=== PATIENT | male | born 1985 | race Caucasian/White ===

== ENCOUNTER 2016-08-31 12:12 | Emergency (ER) | payer OTHER ==
[~2016-08-31] VITALS: Ht 180.3 cm; Wt 108.9 kg
[~2016-08-31 12:12] MED LIST: ACHD5005 PO; NAPR-243 PO
[2016-08-31] MEDS ORDERED: NS IV 1000 ML 1,000 ML IV SCH ×2 (12:45→14:15)
--- NOTE | 2016-08-31 12:48 | ED Psychosocial ---
General Chief Complaint: Substance Abuse Stated Complaint: DRUG USE Nursing Triage Note: AMBULATED TO ROOM 01 ET TEARFUL. COMPLAINS OF HX OF DRUG ABUSE ET LAST TIME HE USED IV METH WAS ON MONDAY. WANTING TO GET OFF OF METH. ALSO USES PROZAC AND HYDROCODONE BUT STATES METH IS THE MAIN PROBLEM. Source: patient Exam Limitations: no limitations History of Present Illness Time seen by provider: 12:45 Initial Comments Brought to ER by his [id number] with reports of drug use. Patient states that he's had a recent relapse last into using IV methamphetamine. His last use was on the night of the seventh he states. This morning he also took 2 or 3 Prozac and 2 or 3 hydrocodone. He states that he is indifferent about dying but has no particular thoughts of suicide or plans to harm himself. He took the pills this morning in an attempt to get high but not to harm himself. He denies any alcohol use. He also uses marijuana regularly. He states he went to inpatient drug treatment in [facility] last year and that was the only time that he's ever been to rehabilitation.. Timing/Duration: just prior to arrival Severity: moderate Allergies and Home Medications Allergies Coded Allergies: No Known Drug Allergies (Unverified , 08/20/11) Constitutional: see HPI EENTM: see HPI Respiratory: no symptoms reported Cardiovascular: no symptoms reported Genitourinary: no symptoms reported Musculoskeletal: no symptoms reported Skin: no symptoms reported Psychiatric/Neurological: No Symptoms Reported Past [id number]-[id number] Hx Patient Social History Recent Foreign Travel: No Contact w/Someone Who Travel: No Recent Infectious Disease Expo: No Physical Exam Vital Signs Vital Sign - Last 12Hours 08/31/16 12:30 Temp 98.0 Pulse 86 Resp 18 B/P (MAP) 138/93 Pulse Ox 94 Capillary Refill : Less Than 3 Seconds General Appearance: WD/WN, no apparent distress, other (can barely keep his eyes open, speech is slurred but he does answer questions appropriately..) HEENT: PERRL/EOMI, normal ENT inspection Neck: non-tender, full range of motion Respiratory: normal breath sounds, no respiratory distress, no accessory muscle use Cardiovascular: regular rate, rhythm, no murmur Gastrointestinal: normal bowel sounds, non tender, soft Extremities: normal range of motion, non-tender Neurologic/Psychiatric: alert, normal mood/affect, oriented x 3 Behavior/Eye Contact: cooperative Thoughts/Hallucinations: normal thought pattern, no apparent hallucination Skin: normal color, warm/dry Progress/Results/Core Measures Results/Orders Lab Results Laboratory Tests Test 08/31/16 12:40 Range/Units White Blood Count 13.7 H 4.3-11.0 10^3/uL Red Blood Count 4.77 4.35-5.85 10^6/uL Hemoglobin 14.4 13.3-17.7 G/DL Hematocrit 42 40-54 % Mean Corpuscular Volume 88 80-99 FL Mean Corpuscular Hemoglobin 30 25-34 PG Mean Corpuscular Hemoglobin Concent 34 32-36 G/DL Red Cell Distribution Width 13.1 10.0-14.5 % Platelet Count 327 130-400 10^3/uL Mean Platelet Volume 9.6 7.4-10.4 FL Neutrophils (%) (Auto) 67 42-75 % Lymphocytes (%) (Auto) 19 12-44 % Monocytes (%) (Auto) 7 0-12 % Eosinophils (%) (Auto) 7 0-10 % Basophils (%) (Auto) 0 0-10 % Neutrophils # (Auto) 9.1 H 1.8-7.8 X 10^3 Lymphocytes # (Auto) 2.5 1.0-4.0 X 10^3 Monocytes # (Auto) 1.0 0.0-1.0 X 10^3 Eosinophils # (Auto) 1.0 H 0.0-0.3 10^3/uL Basophils # (Auto) 0.0 0.0-0.1 10^3/uL Sodium Level 139 135-145 MMOL/L Potassium Level 3.8 3.6-5.0 MMOL/L Chloride Level 102 98-107 MMOL/L Carbon Dioxide Level 29 21-32 MMOL/L Anion Gap 8 5-14 MMOL/L Blood Urea Nitrogen 16 7-18 MG/DL Creatinine 0.82 0.60-1.30 MG/DL Estimat Glomerular Filtration Rate > 60 BUN/Creatinine Ratio 20 Glucose Level 118 H 70-105 MG/DL Calcium Level 9.3 8.5-10.1 MG/DL Total Bilirubin 0.4 0.1-1.0 MG/DL Aspartate Amino Transf (AST/SGOT) 20 5-34 U/L Alanine Aminotransferase (ALT/SGPT) 67 H 0-55 U/L Alkaline Phosphatase 95 40-136 U/L Total Protein 6.9 6.4-8.2 G/DL Albumin 3.9 3.2-4.5 G/DL Salicylates Level < 5.0 L 5.0-20.0 MG/DL Acetaminophen Level < 10 L 10-30 UG/ML Serum Alcohol < 10 <10 MG/DL My Orders Orders - JAIME LONDON APRN Cbc With Automated Diff (08/31/16 12:43) Comprehensive Metabolic Panel (08/31/16 12:43) Alcohol (08/31/16 12:43) Acetaminophen (08/31/16 12:43) Salicylate (08/31/16 12:43) Ekg Tracing (08/31/16:43) Ua Culture If Indicated (08/31/16 12:43) Drug Screen Stat (Urine) (08/31/16 12:43) Saline Lock/Iv-Start (08/31/16 12:43) Ns Iv 1000 Ml (Sodium Chloride 0.9%) (08/31/16 12:45) Ondansetron Injection (Zofran Injectio (08/31/16 13:15) Ns Iv 1000 Ml (Sodium Chloride 0.9%) (08/31/16 14:15) Medications Given in ED Current Medications Medications Dose Ordered Sig/Percy Route Start Time Stop Time Status Last Admin Dose Admin Ondansetron HCl 8 mg ONCE ONCE IVP 08/31/16 13:15 08/31/16 13:16 DC 08/31/16 13:08 8 MG Vital Signs/I&O Vital Sign - Last 12Hours 08/31/16 12:30 Temp 98.0 Pulse 86 Resp 18 B/P (MAP) 138/93 Pulse Ox 94 Blood Pressure Mean: 108 Departure Communication Progress Notes [id number]-patient sleeping but arousable to verbal stimuli. States that he would like to go somewhere for inpatient drug detox and he would like to do that here. I advised him that that cannot be done here for methamphetamine use. I would be happy to talk to an inpatient treatment facility such as [facility] and [facility] he states that he has no way of getting there [id number]- patient now states that he could get transportation to an inpatient treatment facility even a few hours away tomorrow morning but not today. As such I called the [facility] in [place], [place] and they are speaking with him on the phone currently. 1600-patient has discussed his situation with [facility]. They do have a bed available but would need to $100 up front for him to be admitted. Patient has to go speak with his consumer safety officer tomorrow morning at [place], [place] at 8 a.m. and his consumer safety officer will help him with the money to get admitted to [facility] he states. Impression Impression: Primary Impression: Drug abuse Disposition: HOME, SELF-CARE Condition: Stable Departure-Patient Inst. Decision time for Depature: 14:54 Referrals: [facility] (PCP/Family) Primary Care Physician Patient Instructions: ALCOHOL AND SUBSTANCE ABUSE Add. Discharge Instructions: All discharge instructions reviewed with patient and/or family. Voiced understanding. JAIME LONDON APRN August 31, 2016 12:48
[2016-08-31 12:53] LABS: BASOPHILS % (AUTO) 0 % (0-10); EOSINOPHILS % (AUTO) 7 % (0-10); LYMPHOCYTES # (AUTO) 2.5 X 10^3 (1.0-4.0); LYMPHOCYTES % (AUTO) 19 % (12-44); MEAN CORPUSCULAR HEMOGLOBIN 30 PG (25-34); MEAN CORPUSCULAR HGB CONC 34 G/DL (32-36); MEAN CORPUSCULAR VOLUME 88 FL (80-99); MEAN PLATELET VOLUME 9.6 FL (7.4-10.4); MONOCYTES % (AUTO) 7 % (0-12); NEUTROPHILS # (AUTO) 9.1 X 10^3 (1.8-7.8); NEUTROPHILS % (AUTO) 67 % (42-75); PLATELET COUNT 327 10^3/uL (130-400); RED BLOOD COUNT 4.77 10^6/uL (4.35-5.85); RED CELL DISTRIBUTION WIDTH 13.1 % (10.0-14.5); WHITE BLOOD COUNT 13.7 10^3/uL (4.3-11.0)
[2016-08-31 13:14] LABS: ALANINE AMINOTRANSFERASE 67 U/L (0-55); ALBUMIN 3.9 G/DL (3.2-4.5); ANION GAP 8 MMOL/L (5-14); ASPARTATE AMINO TRANSFERASE 20 U/L (5-34); BILIRUBIN,TOTAL 0.4 MG/DL (0.1-1.0); BLOOD UREA NITROGEN 16 MG/DL (7-18); BUN/CREATININE RATIO 20; CALCIUM 9.3 MG/DL (8.5-10.1); CARBON DIOXIDE 29 MMOL/L (21-32); CHLORIDE 102 MMOL/L (98-107); CREATININE SERUM 0.82 MG/DL (0.60-1.30); GFR ESTIMATED > 60; GLUCOSE 118 MG/DL (70-105); POTASSIUM 3.8 MMOL/L (3.6-5.0); SALICYLATE < 5.0 MG/DL (5.0-20.0); SODIUM 139 MMOL/L (135-145); TOTAL PROTEIN 6.9 G/DL (6.4-8.2)
[2016-08-31] MEDS ORDERED: ONDANSETRON 4 MG/2 ML (SDV) Z0FRAN IVP ONE (13:15)
[2016-08-31 13:19] LABS: ACETAMINOPHEN < 10 UG/ML (10-30); ALCOHOL < 10 MG/DL (<10)
[2016-08-31 16:03] VITALS: BP 135/79
== END 2016-08-31 16:03 | disposition home or self-care (01) ==
LOC: EDUNIT# 12:12 → ER 12:14
DX: F15.20 Other stimulant dependence, uncomplicated (principal); F12.90 Cannabis use, unspecified, uncomplicated; Z79.899 Other long term (current) drug therapy
CPT/HCPCS: 36415; 80053; 80320; 80329; 85025